=== PATIENT | female | born 1960 | race Caucasian/White ===

== ENCOUNTER 2018-06-29 14:16 | Emergency (ER) | payer OTHER ==
--- NOTE | 2018-06-29 14:26 | PDOC ---
History of Present Illness - General Chief Complaint: Shortness of Breath Stated Complaint: DIFFICULTY BREATHING Time Seen by Provider: 06/29/18 14:25 - History of Present Illness Initial Comments: The pt is a 58F w/ a history of HTN, hyperlipidemia, NIDDM, asthma who presents for evaluation of 15-20 minutes of shortness of breath that feels like an asthma exacerbation. The patient reports that she has had 3 asthma attacks today , has been using her albuterol with minimal relief, and lost her nebulizer approximately 1 year ago. She reports associated chest tightness, headache, and exacerbation of her chronic back pain that she also reports is typical when she has asthma exacerbations. Denies fevers. H&P conducted w/ professional benefits sales consultant: Deanna [id number] 06/29/18 14:27 Past History - Past Medical History Allergies/Adverse Reactions: Allergies Allergy/AdvReac Type Severity Reaction Status Date / Time No Known Allergies Allergy Verified 06/29/18 14:43 Home Medications: Ambulatory Orders Calcium Carbonate/Vitamin D3 [Oyster Shell 500 mg + Vit D Tb] 1 tab PO BID 08/25 Canagliflozin [Invokana] 300 mg PO DAILY 08/26/15 Duloxetine HCl 30 mg PO DAILY 08/26/15 Metformin HCl [Glucophage] 1,000 mg PO BID 08/26/15 Multivitamins [Multivit ([facility] Form[facility])] 1 tab PO DAILY 08/26/15 Omeprazole 40 mg PO DAILY 08/26/15 Simvastatin 40 mg PO HS 08/26/15 Sitagliptin Phosphate [Januvia] 100 mg PO DAILY 08/26/15 Fluticasone Prop 0.05% Nasal [Flonase -] 1 - 2 spray NS HS 11/21/15 Gabapentin [Neurontin] 300 mg PO BID 11/21/15 Methocarbamol [Robaxin -] 75 mg PO HS 11/21/15 Naproxen [Naprosyn -] 500 mg PO BID 11/21/15 traMADol HCL [Ultram -] 50 mg PO BID PRN 11/21/15 Albuterol 0.083% Nebulizer Lizz [Ventolin 0.083% Nebulizer Soln -] 1 neb NEB Q4H PRN #100 vial 06/29/18 Albuterol Sulfate Inhaler - [Ventolin HFA Inhaler -] 1 - 2 inh PO Q4H PRN #1 inhaler 06/29/18 Inhaler, Assist Devices [Space Chamber Plus] 1 each MC Q4H #1 spacer 06/29/18 Meclizine HCl [Antivert -] 12.5 mg PO QID 06/29/18 Nebulizer [Aeroeclipse II] 1 each MC ONCE #1 each 06/29/18 Asthma: Yes CVA: Yes Diabetes: Yes GI Disorders: Yes Hypercholesterolemia: Yes - Surgical History Cholecystectomy: Yes - Immunization History Td Vaccination: Yes TDAP Vaccination: Yes Immunization Up to Date: Yes - Suicide/Smoking/Psychosocial Hx Smoking Status: No Smoking History: Never smoked Have you smoked in the past 12 months: No Number of Cigarettes Smoked Daily: 0 Hx Alcohol Use: No Drug/Substance Use Hx: No Substance Use Type: None Hx Substance Use Treatment: No Review of Systems - Review of Systems Able to Perform ROS?: Yes Comments:: GENERAL/CONSTITUTIONAL: No fever or chills. No weakness HEAD, EYES, EARS, NOSE AND THROAT: No change in vision or hearing. No sore throat CARDIOVASCULAR: +chest tightness/SOB RESPIRATORY: Denies cough, hemoptysis GASTROINTESTINAL: No nausea, vomiting, diarrhea or constipation GENITOURINARY: No dysuria, frequency, or change in urination MUSCULOSKELETAL: No joint or muscle swelling or pain. +chronic back pain SKIN: No rash NEUROLOGIC: No vertigo, loss of consciousness, or change in strength/sensation ENDOCRINE: No increased thirst. No abnormal weight change HEMATOLOGIC/LYMPHATIC: No anemia, easy bleeding, or history of blood clots ALLERGIC/IMMUNOLOGIC: No hives or skin allergy 06/29/18 14:25 Is the patient limited Occitan proficient: No *Physical Exam - Vital Signs Vital Signs Temp Pulse Resp BP Pulse Ox 97.7 F 84 18 115/76 100 06/29/18 14:32 06/29/18 14:32 06/29/18 14:32 06/29/18 14:32 06/29/18 14:32 06/29/18 15:08 - Physical Exam Comments: GENERAL: Awake, alert, and oriented to person/place/time HEAD: No signs of trauma, normocephalic, atraumatic EYES: PERRLA, EOMI, sclera anicteric, conjunctiva clear ENT: Hearing grossly normal, nares patent, oropharynx clear without exudates. No uvular deviation. Moist mucosa LUNGS: Tachypnic, speaks in phrases, poor air entry HEART: Regular rate and rhythm, normal S1 and S2, no murmurs appreciated, peripheral pulses normal and equal bilaterally ABDOMEN: Soft, nontender, normoactive bowel sounds. No guarding, no rebound EXTREMITIES: Normal inspection, Normal range of motion, no edema. No clubbing or cyanosis NEUROLOGICAL: Cranial nerves II through XII grossly intact. Normal speech, no focal sensorimotor deficits SKIN: Warm, Dry 06/29/18 14:25 ED Treatment Course - LABORATORY CBC & Chemistry Diagram: 06/29/18 15:20 06/29/18 15:20 Medical Decision Making - Medical Decision Making The pt is a 58F w/ a history of HTN, NIDDM, and asthma who presents for evaluation of shortness of breath Ddx: asthma exacerbation, consider ACS, PNA, PE Pt not hypoxic, (w/o recent travel or surgery and symptoms typical of her asthma ), therefore, low suspicion of PE Labs sent CXR ECG Duo-neb x1 06/29/18 15:08 CXR w/o acute pathology Will give additional duo-neb x2 Continues to endorse mild chest tightness but improved from before, SOB improved ; Lungs w/ better air movement and normal respiratory rate; SpO2 on RA 96-100%. 06/29/18 15:37 Trop I neg No leukocytosis No anemia No JULIETTE LFTs wnl Lytes wnl 06/29/18 16:11 Pt improved s/p treatments Plan for D/C w/ PCP f/u Rx for nebulizer and albuterol sent Discharge instructions and return precautions given Pt in agreement and verbalized understanding Dispo: Home 06/29/18 18:11 *DC/Admit/Observation/Transfer Diagnosis at time of Disposition: Asthma Qualifiers: Asthma severity: unspecified severity Asthma persistence: intermittent Asthma complication type: unspecified Qualified Code(s): J45.20 - Mild intermittent asthma, uncomplicated - Discharge Dispostion Disposition: HOME Condition at time of disposition: Improved Decision to Admit order: No - Prescriptions Prescriptions: Albuterol 0.083% Nebulizer Lizz [Ventolin 0.083% Nebulizer Soln -] 1 neb NEB Q4H PRN #100 vial PRN Reason: Wheezing Albuterol Sulfate Inhaler - [Ventolin HFA Inhaler -] 1 - 2 inh PO Q4H PRN #1 inhaler PRN Reason: Wheezing Inhaler, Assist Devices [Space Chamber Plus] 1 each MC Q4H #1 spacer Nebulizer [Aeroeclipse II] 1 each MC ONCE #1 each - Referrals Referrals: Andrea Hernandez MD [Primary Care Provider] - - Patient Instructions Printed Discharge Instructions: DI for Asthma -- Adult, How to Use a Nebulizer Additional Instructions: You were seen in the Emergency Department for evaluation of shortness of breath. You were treated with duo-nebs. Your labs were unremarkable. Review the handouts provided at discharge. A prescription was sent to your pharmacy for a nebulizer and albuterol. Follow up with your primary care provide within the week. Return to the Emergency Department if you develop fevers/chills, chest pain, trouble breathing, vomiting, worsening symptoms, or any new/concerning symptoms. Usted fue atendido en el Departamento de Emergencias para evaluar la falta de aliento. Te trataron con duo-nebs. Tus laboratorios no tuvieron nada especial. Revise los folletos proporcionados al momento del monet. Se envi natalie receta a dobbins farmacia para un nebulizador y albuterol. Stephane un seguimiento con dobbins atencin primaria dentro de la semana. Regrese al Departamento de Emergencias si desarrolla fiebre / escalofros, dolor en el pecho, dificultad para respirar, vmitos, empeoramiento de los sntomas o cualquier sntoma nuevo o relacionado. Print Language: OCCITAN - Post Discharge Activity
[2018-06-29 14:38] VITALS: TEMP 97.7; BMI 24.1
[2018-06-29] MEDS ORDERED: ALBUTEROL SO4 2.5/IPRATROPIUM 0.5 INH SOL 3 ML VIAL.NEB. NEB ONE ×2 (14:56→15:38)
[2018-06-29] MEDS ORDERED: ALBUTEROL SO4 2.5/IPRATROPIUM 0.5 INH SOL 3 ML VIAL.NEB. NEB SCH ×2 (15:00→15:06)
[2018-06-29 15:32] LABS: HEMATOCRIT 39.2 % (32.4-45.2); HEMOGLOBIN 12.9 GM/dL (10.7-15.3); MCH 28.7 pg (25.7-33.7); MEAN PLT VOLUME 8.4 fl (7.5-11.1); PLATELET COUNT 309 K/MM3 (134-434); RBC 4.51 M/mm3 (3.60-5.2); RDW 14.9 % (11.6-15.6); WHITE BLOOD COUNT 6.9 K/mm3 (4.0-10.0)
[2018-06-29 15:48] LABS: ALBUMIN 3.8 g/dl (3.4-5.0); ALK PHOS 105 U/L (45-117); ANION GAP 8 MMOL/L (8-16); BILIRUBIN,TOTAL 0.2 mg/dL (0.2-1); BLOOD UREA NITROGEN 10 mg/dL (7-18); CALCIUM 9.3 mg/dL (8.5-10.1); CHLORIDE 104 mmol/L (98-107); CO2 27 mmol/L (21-32); CREATININE 0.7 mg/dL (0.55-1.3); GLUCOSE,RANDOM 122 mg/dL (74-106); POTASSIUM 3.4 mmol/L (3.5-5.1); SGOT/AST 22 U/L (15-37); SGPT/ALT 35 U/L (13-61); SODIUM 139 mmol/L (136-145); TOT PROT 7.9 g/dl (6.4-8.2)
--- NOTE | 2018-06-29 15:49 | PDOC ---
Attending Attestation - Resident Resident Name: Allyssa Murrayan - ED Attending Attestation I have performed the following: I have examined & evaluated the patient, The case was reviewed & discussed with the resident, I agree w/resident's findings & plan - HPI HPI: 06/29/18 17:00 58YOF with a significant past medical history of HTN, hyperlipidemia, NIDDM, asthma, who presents to the emergency department with, an approximately 15min episode of shortness of breath with associated chest tightness and headache which is noted to be similar to her previous episodes which were diagnosed to as asthma exacerbation. She endorses 3 asthma attacks today, she used her rescue inhaler, with minimal relief prompting her arrival. - Physicial Exam PE: 06/29/18 17:00 NAD, well appearing, PERRL, EOMI, MMM, nl conjunctiva, anicteric; neck supple. lungs with scant wheezing, no respiratory distress, mild tachy 2/2 nebs, abdomen soft nontender. MAYES x4, no focal neuro deficits. No peripheral edema. normal color for ethnicity, WWP. no calf tenderness - Medical Decision Making 06/29/18 15:49 hpi as documented, vitals reviewed, wnl. no hypoxia, 100% on RA CXR clear, no pna. labs wnl, k mildly low trop neg. less likely cardiac EKG normal sinus rhythm at 95 bpm, no interval abnormalities, narrow QRS, ST and T wave segments and morphology normal. Nonspecific T wave abnormalities in precordial and I, AVL - unchanged from prior' given duonebs x3, feels improved, no respiratory distress and no hypoxia. no steroids, h/o diabetes and risk of dka/hyperglycemia. rx albuterol, with neb machine, inhaler and spacer use. Pt informed of my clinical impression, treatment recommendations and disposition plan. All questions answered to patient's satisfaction and expressed understanding and comfort with this. Reasons for returning to the ED sooner discussed with the patient otherwise, follow up with primary care physician. At the time of discharge, the patient is alert, clinically improved, tolerating po and verbalizes understanding of instructions. Patient does not suffer from an acute life-threatening medical condition at this time she is safe for outpatient follow-up. 06/29/18 17:01 06/29/18 17:03 Heart Score/ECG Review #1 ECG reviewed & interpreted by me at: 15:55 General ECG Interpretation: Sinus Rhythm, Normal Rate Compared to previous ECG there are: No significant change 06/29/18 17:10 EKG normal sinus rhythm at 95 bpm, no interval abnormalities, narrow QRS, ST and T wave segments and morphology normal. Nonspecific T wave abnormalities in precordial and I, AVL - unchanged from prior'
[2018-06-29] MEDS: ALBUTEROL SO4 2.5/IPRATROPIUM 0.5 INH SOL 3 ML VIAL.NEB. NEB SCH (16:07)
[2018-06-29 17:43] VITALS: BP 101/50; PULSE 90
--- NOTE | 2018-06-30 09:59 | EKG ---
Test Reason : Blood Pressure : / mmHG Vent. Rate : 095 BPM Atrial Rate : 095 BPM P-R Int : 190 ms QRS Dur : 098 ms QT Int : 360 ms P-R-T Axes : 056 -01 077 degrees QTc Int : 452 ms NORMAL SINUS RHYTHM NONSPECIFIC T WAVE ABNORMALITY ABNORMAL ECG WHEN COMPARED WITH ECG OF 21-NOV-2015 13:46, NO SIGNIFICANT CHANGE WAS FOUND Confirmed by AMELIA SKELTON MD ([id number]) on 06/30/2018 9:59:10 AM Referred By: Confirmed By:AMELIA SKELTON MD
== END 2018-06-29 17:42 | disposition home or self-care (01) ==
LOC: JER 14:16
PROC: 3E0F7GC Introduction of Other Therapeutic Substance into Respiratory Tract, Via Natural or Artificial Opening (ICD-10-PCS; principal; 2018-06-29)
PROC: 3E0F7GC Introduction of Other Therapeutic Substance into Respiratory Tract, Via Natural or Artificial Opening (ICD-10-PCS; 2018-06-29)
DX: J45.20 Mild intermittent asthma, uncomplicated (principal); E11.9 Type 2 diabetes mellitus without complications; Z79.84 Long term (current) use of oral hypoglycemic drugs; E78.00 Pure hypercholesterolemia, unspecified; Z86.73 Personal history of transient ischemic attack (TIA), and cerebral infarction without residual deficits
CPT/HCPCS: 36415; 71045-TC-FY; 80053; 84484; 85027; 93005; 93010; 94640; 99282-25